=== PATIENT | female | born 1965 | race Caucasian/White ===

== ENCOUNTER 2024-03-26 09:24 | Emergency (ER) | payer OTHER ==
[~2024-03-26] VITALS: Ht 165.1 cm; Wt 85.0 kg
[2024-03-26] MEDS ORDERED: DIOVAN80 MG PO (10:01)
[2024-03-26] MEDS ORDERED: SIMVASTATIN40 MG PO (10:01)
[2024-03-26] MEDS ORDERED: LEVOTHYROXINE75 MCG PO (10:01)
[2024-03-26] MEDS: LACTATED RINGER'S 1,000 ML INJ ONE (10:31)
[2024-03-26] MEDS: ONDANSETRON HCL INJ 2MG/ML 2ML 2 MG/ML VIAL IV ONE (10:31)
[2024-03-26] MEDS: FAMOTIDINE 20 MG/2 ML VIAL IV ONE (10:31)
[2024-03-26] MEDS: KETOROLAC TROMETHAMINE 30 MG/ML VIAL IV ONE (10:32)
[2024-03-26] MEDS ORDERED: ONDANSETRON ODT4 MG PO (11:47)
[2024-03-26] MEDS ORDERED: FAMOTIDINE20 MG PO (11:47)
[2024-03-26] MEDS ORDERED: CEFDINIR300 MG PO (11:55)
[2024-03-26 12:13] VITALS: PULSE 67; RESP 16; TEMP 96.5; O2SAT 95
== END 2024-03-26 12:13 | disposition home or self-care (01) ==
LOC: EDBD 09:24 → FSED 09:29
DX: R19.7 Diarrhea, unspecified (principal); R55 Syncope and collapse; E86.0 Dehydration; N39.0 Urinary tract infection, site not specified; I10 Essential (primary) hypertension; E78.5 Hyperlipidemia, unspecified; E03.9 Hypothyroidism, unspecified; Z11.52 Encounter for screening for COVID-19; Z98.84 Bariatric surgery status
CPT/HCPCS: 0223U; 70450; 80053; 85025; 87400; 93005; 96374; 96375; 99284; J0696; J1885; J2405; J7121

== ENCOUNTER 2024-04-13 06:54 | Emergency (ER) | payer OTHER ==
[~2024-04-13] VITALS: Ht 165.1 cm; Wt 84.8 kg
[~2024-04-13 06:54] MED LIST: CEFDINIR300 MG PO; DIOVAN80 MG PO; FAMOTIDINE20 MG PO; LEVOTHYROXINE75 MCG PO; ONDANSETRON ODT4 MG PO; SIMVASTATIN40 MG PO
[2024-04-13] MEDS ORDERED: IBUPROFEN 600 MG TAB PO STA (07:18)
[2024-04-13] MEDS ORDERED: TAMIFLU75 MG PO (08:05)
[2024-04-13] MEDS ORDERED: ONDANSETRON ODT4 MG PO (08:05)
[2024-04-13] MEDS ORDERED: BENZONATATE100 MG PO (08:05)
[2024-04-13 08:11] VITALS: PULSE 76; RESP 18; TEMP 98.3; O2SAT 99
== END 2024-04-13 08:11 | disposition home or self-care (01) ==
LOC: FSED 07:05
DX: R05.9 Cough, unspecified (principal); J10.1 Influenza due to other identified influenza virus with other respiratory manifestations; I10 Essential (primary) hypertension; E78.5 Hyperlipidemia, unspecified; E03.9 Hypothyroidism, unspecified; Z11.52 Encounter for screening for COVID-19; Z98.84 Bariatric surgery status; F17.210 Nicotine dependence, cigarettes, uncomplicated
CPT/HCPCS: 0223U; 71045; 87400; 99284